=== PATIENT | female | born 2000 | race Caucasian/White ===

== ENCOUNTER → 2021-03-08 13:51 | Outpatient (BNVA) | payer MEDICAID, SELFPAY | PROVIDERS: Visit Provider Nurse Practitioner Women's Health | DX: N92.6 Irregular menstruation, unspecified (principal) | CPT/HCPCS: 81025; 84702 ==

== ENCOUNTER → 2021-03-11 09:38 | Outpatient (BNVA) | payer MEDICAID, SELFPAY | PROVIDERS: Visit Provider Nurse Practitioner Women's Health | DX: N92.6 Irregular menstruation, unspecified (principal) | CPT/HCPCS: 84702 ==

== ENCOUNTER → 2021-03-28 09:19 | Outpatient (BNVA) | payer MEDICAID, SELFPAY | PROVIDERS: Visit Provider Nurse Practitioner Women's Health | DX: Z34.80 Encounter for supervision of other normal pregnancy, unspecified trimester (principal) | CPT/HCPCS: 81000 ==

== ENCOUNTER 2021-11-04 09:10 | Outpatient (CLI) | payer MEDICAID, SELFPAY ==
[2021-11-04 09:27] VITALS: BP 134/92; PULSE 120
[2021-11-04 09:42] VITALS: BP 126/75; PULSE 96
[2021-11-04 09:57] VITALS: BP 117/70; PULSE 100
[2021-11-04 10:12] VITALS: BP 116/71; PULSE 99
[2021-11-04 10:28] VITALS: BMI 30.5
[2021-11-04 10:29] VITALS: RESP 18; TEMP 37.2
[2021-11-04 10:46] VITALS: RESP 18; TEMP 37.2
[2021-11-04 19:18] LABS: Nitrazine Paper, PH Negative
== END 2021-11-04 10:30 | disposition home or self-care (01) ==
LOC: OPOB 09:11 → OBGYN 10:24
PROVIDERS: Visit Provider Family Medicine
DX: O26.899 Other specified pregnancy related conditions, unspecified trimester (principal); Z3A.00 Weeks of gestation of pregnancy not specified; N89.8 Other specified noninflammatory disorders of vagina
CPT/HCPCS: 59025; 83986; 99211

== ENCOUNTER 2021-11-05 02:23 | Outpatient (CLI) | payer MEDICAID, SELFPAY ==
[2021-11-05 02:35] VITALS: BP 133/82; PULSE 107
[2021-11-05 02:45] VITALS: RESP 16
[2021-11-05 02:46] VITALS: BMI 31.6
== END 2021-11-05 03:57 | disposition home or self-care (01) ==
LOC: OPOB 02:32 → OBGYN 02:32
PROVIDERS: Visit Provider Family Medicine
DX: O26.899 Other specified pregnancy related conditions, unspecified trimester (principal); Z3A.00 Weeks of gestation of pregnancy not specified; R10.9 Unspecified abdominal pain
CPT/HCPCS: 59025; 99211

== ENCOUNTER 2021-11-06 06:56 | Inpatient (IN) | payer MEDICAID, SELFPAY ==
[2021-11-06] VITALS (63 sets, daily range): BP systolic 89–139; BP diastolic 52–90; PULSE 78–164; RESP 16–18; TEMP 36.7–37.9; O2SAT 100; BMI 30.9
[2021-11-06] MEDS: lactated ringers 1,000 ML 999 ML IV ×2 (07:55→08:54)
--- NOTE | 2021-11-06 08:07 | PM.OPHPUD ---
Labor & Delivery H&P Update Date of Procedure: November 06, 2021 Date H&P Performed: 11/02/21 Changes to previous documentation: Cervix is dilated to 8 cm 90% effaced. Admission Diagnosis: 21-year-old 1 female at 39 weeks estimated gestational age in active labor Planned procedure: Spontaneous vaginal delivery Other information: The patient is a otherwise healthy 21-year-old 1 female at 39 weeks and 4 days presenting to the hospital in active labor. She has had unremarkable . Her blood type is a positive. Her antibody screen is negative. Her glucose screen was negative. She is GBS negative. The remainder of her labs are within normal limits. Related Problem List Diagnoses (1) 39 weeks gestation of : The patient desires an epidural. At this point she is progressing quickly, and I am hopeful that she will have an unremarkable spontaneous vaginal delivery (2) Active labor at term:
[2021-11-06 08:15] LABS: Basophils # 0.1 10^3/uL (0.0-0.1); Basophils % 0.2 %; Eosinophils # 0.1 10^3/uL (0.0-0.8); Eosinophils % 0.4 %; Hematocrit 36.4 % (37.0-47.0); Lymphocytes # 1.3 10^3/uL (0.8-4.8); Lymphocytes % 5.5 %; Mean Corpuscular Hemoglobin 27.1 pg (28.0-34.0); Mean Corpuscular Volume 82.4 fl (81-99); Mean Platelet Volume 11.9 fL (7.4-10.4); Monocytes % 4.1 %; Neutrophils # 21.62 10^3/uL (1.8-7.7); Neutrophils % 89.1 %; Nucleated Red Blood Cells % 0 %; Platelet Count 266 10^3/cmm (130-400); Red Blood Count 4.42 10^6/uL (4.1-5.3); Red Cell Distribution Width 13.9 % (12.1-15.1); White Blood Count 24.3 10^3/uL (4.0-10.0)
--- NOTE | 2021-11-06 09:17 | ANES.PREANE2 ---
Pre-Anesthetic Assessment Height/Weight: Height 1.63 m Weight 81.647 kg Temp Pulse Resp BP Pulse Ox 98.0 F 103 H 17 124/81 100 11/06/21 09:04 11/06/21 09:13 11/06/21 09:04 11/06/21 09:13 11/06/21 09:13 Familial anesthetic complications: None Was Beta Aminata taken within 24 hours: N/A Was Clonidine taken within 24 hours: N/A Social No alcohol and No tobacco Exam alert, oriented x 3, clear to auscultation bilaterally and regular rate & rhythm Airway Submandibular: within normal limits Cervical ROM: within normal limits Mallampati: Class II Dentition: full History/ROS No significant history except as noted Anesthetic Plan ASA status: 2 Anesthesia: Regional (specify below) (Labor epidural) Medications/Allergies Home Medications Medication Instructions Recorded Confirmed Last Taken Type prenat.vits,clint,qsn-[id number]-rhfpz 1 tab PO DAILY 03/28/21 11/06/21 Unknown History Allergies Allergy/AdvReac Type Severity Reaction Status Date / Time latex Allergy skin Verified 03/28/21 08:58 irritation Current Medications Generic Name Dose Route Start Last Admin Trade Name Freq PRN Reason Stop Dose Admin Ropivacaine 200 mg in 100 mls @ 13 mls/hr 11/06/21 07:45 11/06/21 08:54 Naropin Premix EPIDURAL 13 mls/hr .[id number] RIGOBERTO Administration Lactated Ringer's 1,000 mls @ 999 mls/hr 11/06/21 07:36 11/06/21 08:54 Lactated Ringers IV 999 mls/hr .Q1H1M PRN Administration See label comments PFSH Anesthesia Medical History No pertinent past medical history neghx: htn,dm,thyroid,dvt/pe PCP: Dr. Oliveira Surgical History History of placement of ear tubes as a child Family History Grandfather Diabetes Paternal Hypertension Maternal Grandmother Hypertension Maternal Denies family history of Colon cancer Ovarian cancer Heart disease Hypercholesteremia Breast cancer Uterine cancer Thyroid disease Stroke Female Reproductive History : 1 Data Anesthesia : 11/06/21 07:45 Short CBC 11/06/21 Range/Units 07:45 WBC 24.3 H (4.0-10.0) 10^3/uL Hgb 12.0 (11.5-15.3) g/dL Hct 36.4 L (37.0-47.0) % MCV 82.4 (81-99) fl Plt Count 266 (130-400) 10^3/cmm Neut % (Auto) 89.1 % Neut # (Auto) 21.62 H (1.8-7.7) 10^3/uL Cardiac Studies: No Data to Display Anesthesia Procedures Epidural Time Out Performed: Yes Consents Signed: Procedure Consent Consent: requested by attending/covering physician, from patient, risks and benefits reviewed and patient agrees to proceed Lumbar Level: L4-L5 Epidural position: sitting Epidural procedure: sterile prep of area, 1% lidocaine to numb the area, 18 g needle, neg for paresthesia, test dose given, 1.5% xylocaine 1:200k epi, placed PCEA, no systemic response, sterile dressing applied and 0.2% Ropiavacaine @ mls/hr (13) Additional Comments: CHANELL a 5cm, cath at 10cm, bolused 5mls of 0.25% bup
[2021-11-06] MEDS: oxytocin 30 UNIT/500 ML BAG IV (10:45)
[2021-11-06] MEDS: dextrose 5%-lactated ringers 1,000 ML 125 ML IV (10:48)
--- NOTE | 2021-11-06 13:20 | PM.DELIVERY ---
Delivery Note: Date of delivery: November 06, 2021 Pre-delivery diagnoses: 21-year-old 1 at 39 weeks estimated gestational age Post-delivery diagnoses: Status post spontaneous vaginal delivery Procedure: Spontaneous vaginal delivery Delivering Physician: Sandra Estimated blood loss (mL): 100 Pre-Delivery Course: Patient arrived to the hospital complaining of contractions and leaking fluid. She was found to have spontaneous rupture of membranes. An epidural was placed. She progressed until about 9 cm but then stalled for several hours. As result so Pitocin was added. She progressed to complete without difficulty. Delivery: DELIVERY: The patient progressed to complete without difficulty. She delivered a male with a weight of 6 pounds 9 ounces with Apgars of 9, 9. The baby was delivered from the REGINA position and placed on the mother's abdomen. The cord was then clamped and cut 1 minute after delivery. The baby then peed on me. There was no nuchal cord. There was no meconium. The placenta and 3 vessel cord were delivered intact shortly thereafter. The perineum and vaginal vault were carefully examined. No lacerations were noted. Both the mother and the baby were in stable condition. Post-Delivery Status: Good History History History 1 Term Miscarriages/Ectopic Living Children A&P Assessment and plan (1) Spontaneous vaginal delivery: I anticipate routine care. The patient plans to breast-feed. 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
[2021-11-06] MEDS: ibuprofen 800 mg tablet PO ×2 (15:03→21:01)
[2021-11-06] MEDS: lanolin oint 7 gm 1 APPLIC TOPICAL (15:03)
[2021-11-06] MEDS: benzocaine-menthol 78 gm Canister 1 SPRAY TOPICAL (15:03)
--- NOTE | 2021-11-06 17:22 | ANE.PACU2 ---
Inpatient post-anesthesia follow up: Airway intact: Yes Vital signs: Temperature 98.1 F Pulse Rate 110 Respiratory Rate 16 Blood Pressure 100/60 Pulse Oximetry 100 Oxygen Delivery Me thod Room Air Oxygen Flow Rate Fraction of Inspir ed Oxygen Hydration adequate: Yes Nausea and vomiting: No Pain level: 2 Mental status: Baseline
--- NOTE | 2021-11-06 17:34 | PC.NURSE ---
pt going to attempt to go to restroom. assisted pt to side of bed and to standing. pt unable to bear weight with left leg, so pt back to bed. percy care performed and chux changed. instructed pt not to try getting out of bed without assistance, and we will try again in an hour or so.
[2021-11-06] MEDS: docusate sodium 100 mg Capsule PO (21:01)
[2021-11-07 01:37] LABS: Hematocrit 34.3 % (37.0-47.0); Hemoglobin 11.1 g/dL (11.5-15.3); Mean Corpuscular HGB Conc 32.4 g/dL (30.0-36.0); Mean Corpuscular Hemoglobin 27.1 pg (28.0-34.0); Mean Corpuscular Volume 83.7 fl (81-99); Platelet Count 208 10^3/cmm (130-400); Red Cell Distribution Width 14.1 % (12.1-15.1); White Blood Count 19.9 10^3/uL (4.0-10.0)
[2021-11-07 04:35] VITALS: BP 110/60; PULSE 93
--- NOTE | 2021-11-07 06:48 | P.DS_ITS ---
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 She received an epidural. She progressed to complete and had an unremarkable delivery of a healthy appearing term male infant. Her course was also unremarkable. She breast-fed well. Her bleeding was within normal limits. Her pain was well controlled. There were no problems. Information Peripartum Data: Infant Delivery Method: Vaginal Physical Exam Narrative: The patient is alert. She appears comfortable. Her heart has a regular rate and rhythm with no murmurs appreciated. Lungs are clear to auscultation bilaterally. Her fundus is firm and below the umbilicus. Urinary Catheter Management: Fong Latex Free: Cath Placed During This Visit: yes, but has since been removed by the nurse Reason for Continuing Indwelling Catheter: Decision to DC Catheter Urinary Catheter Date of Insertion: 11/06/21 Urinary Catheter Time of Insertion: 10:00 Date Urinary Catheter Removed: 11/06/21 Time Urinary Catheter Discontinued: 12:40 History History History 1 Term Miscarriages/Ectopic Living Children Discharge Data Studies Completed and Pending Laboratory Results WBC 19.9 10^3/uL (4.0-10.0) H 11/07/21 01:21 RBC 4.10 10^6/uL (4.1-5.3) 11/07/21 01:21 Hgb 11.1 g/dL (11.5-15.3) L 11/07/21 01:21 Hct 34.3 % (37.0-47.0) L 11/07/21 01:21 MCV 83.7 fl (81-99) 11/07/21 01:21 MCH 27.1 pg (28.0-34.0) L 11/07/21 01:21 MCHC 32.4 g/dL (30.0-36.0) 11/07/21 01:21 RDW 14.1 % (12.1-15.1) 11/07/21 01:21 Plt Count 208 10^3/cmm (130-400) 11/07/21 01:21 MPV 12.0 fL (7.4-10.4) H 11/07/21 01:21 Neut % (Auto) 89.1 % 11/06/21 07:45 Lymph % (Auto) 5.5 % 11/06/21 07:45 [place] % (Auto) 4.1 % 11/06/21 07:45 Eos % (Auto) 0.4 % 11/06/21 07:45 Baso % (Auto) 0.2 % 11/06/21 07:45 Neut # (Auto) 21.62 10^3/uL (1.8-7.7) H 11/06/21 07:45 Lymph # (Auto) 1.3 10^3/uL (0.8-4.8) 11/06/21 07:45 [place] # (Auto) 1.0 10^3/uL (0.2-0.9) H 11/06/21 07:45 Eos # (Auto) 0.1 10^3/uL (0.0-0.8) 11/06/21 07:45 Baso # (Auto) 0.1 10^3/uL (0.0-0.1) 11/06/21 07:45 Nucleated RBC % (auto) 0 % 11/06/21 07:45 Nucleated RBCs # 0.0 /100WBC 11/06/21 07:45 Vitals Last Vital Signs Temp 98.1 F 11/06/21 14:30 Pulse 93 11/07/21 04:35 Resp 16 11/06/21 14:30 BP 110/60 11/07/21 04:35 Pulse Ox 100 11/06/21 10:03 Discharge Plan Discharge Patient Disposition: Home Condition: Stable Prescriptions: New ibuprofen 800 mg Tablet 800 mg PO TID Qty: 45 0RF Continued prenat.vits,clint,shj-vfcd-pswej Tablet 1 tab PO DAILY 0RF Discharge Orders: Discharge Order (Routine); Ordered 11/07/21 Ordered By: Mark Kaminski Referrals: Mark Kaminski MD [Physician] - 6 Weeks Discharge Diet: Usual diet Discharge Activity: Limit activity as instructed Patient Instructions: Opioid Safety 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
[2021-11-07 07:00] VITALS: BP 106/62; PULSE 88
[2021-11-07] MEDS: prenatal vitamin Capsule 1 CAP PO (09:22)
[2021-11-07] MEDS: docusate sodium 100 mg Capsule PO (09:22)
[2021-11-07] MEDS: ibuprofen 800 mg tablet PO (09:22)
[2021-11-07 09:55] VITALS: BP 110/76; PULSE 86
[2021-11-07 14:44] VITALS: BP 107/73; PULSE 85; TEMP 36.7
[2021-11-07 15:24] VITALS: BP 107/73; PULSE 85; TEMP 36.7
== END 2021-11-07 15:35 | disposition home or self-care (01) | DRG 807 ==
LOC: OPOB 06:57 → OBGYN 06:59
PROVIDERS: Admitting Provider Family Medicine; Visit Provider Family Medicine
DX: O80 Encounter for full-term uncomplicated delivery (principal); Z37.0 Single live birth; Z3A.39 39 weeks gestation of pregnancy
CPT/HCPCS: 12345; 36415; 51702; 59025; 59409; 83986; 85025; 85027; 99211; J2795; J3490